=== PATIENT | female | born 1960 | race Caucasian/White ===

== ENCOUNTER 2017-12-18 18:28 | Emergency (ER) | payer OTHER ==
[~2017-12-18] VITALS: Ht 165.1 cm; Wt 72.5 kg
[2017-12-18 18:50] VITALS: PULSE 91; TEMP 36.7; O2SAT 96; Ht 165.1 cm; Wt 72.5 kg
[2017-12-18 20:13] VITALS: BP 188/93
== END 2017-12-18 20:10 | disposition left against medical advice (07) ==
LOC: C.EDB 18:30